=== PATIENT | female | born 1935 | race Caucasian/White ===

== ENCOUNTER 2016-09-25 10:28 | Day surgery (SDC) | payer OTHER, MEDICARE ==
[~2016-09-25 10:28] MED LIST: BUPIVACAINE 0.5% 30 ML SDV ONE; SKIN ADHESIVE (DERMABOND) 1 EACH TP ONE
[2016-09-25] MEDS ORDERED: LIDOCAINE 2% 100 MG/5 ML SYR IVP ONE (10:51)
[2016-09-25] MEDS ORDERED: ROPIVACAINE HCL 150 MG/30 ML INJ ONE (10:51)
[2016-09-25] MEDS ORDERED: LIDOCAINE 2% 5 ML SDV ONE (10:56)
[2016-09-25] MEDS ORDERED: CEFAZOLIN 1 GM/DEXTROSE/50 ML BAG IV ONE (11:08)
[2016-09-25] MEDS ORDERED: fentaNYL 100 MCG/2 ML INJ ONE (11:36)
[2016-09-25] MEDS ORDERED: PROPOFOL 200 MG/20 ML VIAL ONE (12:08)
[2016-09-25] MEDS ORDERED: ONDANSETRON 4 MG/2 ML VIAL ONE (14:02)
--- NOTE | 2016-09-25 15:04 | GOP ---
[f rep st] OPERATIVE REPORT DATE OF OPERATION: 09/25/2016 SURGEON: Trenton Manuel MD MOTOR ANALYST: Jose Navas SA ANESTHESIA: General with popliteal block. PREOPERATIVE DIAGNOSIS: 1. 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 2. Hammertoe second metatarsophalangeal dislocation. 3. Ingrown toenail. POSTOPERATIVE DIAGNOSIS: 1. 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 2. Hammertoe, second metatarsophalangeal dislocation. 3. Ingrown toenail. PROCEDURE PERFORMED: 1. Right first metatarsophalangeal fusion. 2. Right second shortening metatarsal osteotomy. 3. Right hammertoe correction with proximal interphalangeal joint fusion. 4. Right third lateral toenail resection ablation. FINDINGS: SPECIMENS: None. ESTIMATED BLOOD LOSS: 10 mL. DESCRIPTION OF PROCEDURE: She was taken to the operating suite. A block had been administered by anesthesia. She was given 1 g of Ancef. Sterilely prepped and draped in normal fashion. A time-out was performed, verifying the site, side, location in agreement with the team. Tourniquet was inflated to 250 mmHg. A time-out had been performed. The procedure was begun with an incision over the 1st MTP joint. I exposed the joint protecting the EHL. This was arthritic and severely deformed. I then prepared the joint for fusion using conical reamers. Next, I exposed the 2nd hammertoe and performed a resection of the PIP joint with a sagittal saw. I then exposed the 2nd MTP joint using blunt dissection. In the exposed joint, there was significant synovitic tissue which was removed. The joint was deformed with some arthritic changes, but was intact. I used a sagittal saw to perform a shortening metatarsal osteotomy, removed this proximally, removed extra bone and pinned this, checked this with x-ray, and then placed a snap-off screw across this to achieve fixation compression. I then pinned the 2nd hammertoe into place with a K-wire. I checked this fluoroscopically. I then provisionally pinned the 1st MTP fusion and adjusted this. Measured this on x-ray and used a plate to check the position. I then placed a 4-0 headless compression screw across the 1st MTP to achieve compression, and placed a plate over top of this with locking screws. Final x- rays taken showing good deformity correction and stable construct. I also then performed a lateral 3rd partial toenail resection for an ingrown toenail. I made an incision in the proximal portion this and removed the matrix. This will not grow back. This was closed. I thoroughly irrigated the wounds. Closed with 0 Vicryl, 2-0 Vicryl, 3-0 nylon , and 4-0 nylon, and a sterile dressing. Taken to PACU in stable condition. COMPLICATIONS: None. DRAINS: None. DISPOSITION: Stable. INDICATION FOR PROCEDURE: This is a female with severe right foot deformity and continued pain. She failed conservative management. She has a 2nd MTP toe dislocation. I counseled her on the risks and benefits of the above operative intervention. She elected to proceed. We specifically discussed risks of stiffness, nerve pain, wound problems, nonunion, malunion, deformity, recurrence , and she elected to proceed. Informed consent was obtained. All questions were answered. She was marked preoperatively. /[id number]/MODL MTDD
== END 2016-09-25 15:36 | disposition home or self-care (01) ==
LOC: FSGY 10:28
PROVIDERS: ATTEND Orthopaedic Surgery
PROC: 0HTRXZZ Resection of Toe Nail, External Approach (ICD-10-PCS; 2016-09-25)
PROC: 0SGM04Z Fusion of Right Metatarsal-Phalangeal Joint with Internal Fixation Device, Open Approach (ICD-10-PCS; principal; 2016-09-25 12:00)
PROC: 0SGP04Z Fusion of Right Toe Phalangeal Joint with Internal Fixation Device, Open Approach (ICD-10-PCS; principal; 2016-09-25 12:00)
PROC: 0QTQ0ZZ Resection of Right Toe Phalanx, Open Approach (ICD-10-PCS; 2016-09-25 12:00)
DX: M20.41 Other hammer toe(s) (acquired), right foot (principal); S93.121A Dislocation of metatarsophalangeal joint of right great toe, initial encounter; M20.11 Hallux valgus (acquired), right foot; M21.6X1 Other acquired deformities of right foot; L60.0 Ingrowing nail; M79.671 Pain in right foot; M25.551 Pain in right hip; Z96.642 Presence of left artificial hip joint
CPT/HCPCS: 11750; 28285; 28750; C1769; C1713; J0690; J2001; J2405; J2704; J2795; J3010